=== PATIENT | male | born 1980 | race Caucasian/White ===

== ENCOUNTER → 2019-06-18 09:53 | Outpatient (CLI) | payer MEDICAID, SELFPAY ==
--- NOTE | 2019-06-18 10:26 | MRI_ITS ---
STUDY: MRI BRAIN WITH AND WITHOUT CONTRAST REASON FOR EXAM: Male, 38 years old. The patient presents with a history of right-sided hearing loss with dizziness x4 years. TECHNIQUE: Standardized multiplanar fat and water weighted pulse sequences were obtained. IV Dotarem 15 was administered for the contrast portion of the examination. Post contrast thin section T1 images were obtained in the axial and coronal planes of the posterior fossa and internal auditory canals. COMPARISON: None. FINDINGS: Normal size of the ventricles and extra-axial spaces for the patient's age. Normal white matter tracts of the supratentorial brain. There is no evidence for recent intracranial ischemia or other cause of cytotoxic edema on diffusion weighted imaging (DWI). Normal bilateral basal ganglia. Normal thalami. There is no extra-axial fluid accumulation. Normal flow voids within the major intracranial circulation suggesting patency by spin echo criteria. Normal venous enhancement. There is no enhancing intra-axial or extra-axial abnormality. Normal sella turcica, pituitary gland, infundibular stalk, optic chiasm and hypothalamus. Normal tectal plate and pineal gland. Normal midbrain, devon and medulla. Normal cerebellum. Normal basal cisterns. Normal bilateral temporal bones. Normal bilateral internal auditory canals. There is no enhancement of the bilateral 7th and 8th nerve complexes. There is no demonstrated vestibular schwannoma (acustic neuroma). No demonstrated orbital abnormality, within the constraints of a routine brain study. There are retention cyst of the right maxillary sinus. Normal calvarium and skull base. Normal visualized soft tissue structures. Normal visualized upper cervical spine. MRI/Brain W/WO Contrast IMPRESSION: 1. Normal unenhanced and enhanced MRI of the brain. 2. No acoustic neuroma. Electronically Signed: Irineo Flor DO at 13:44 EDT Tel , Service support ,
== END ==
PROVIDERS: Family Provider Family Medicine; PCP Family Medicine; Referring Provider Otolaryngology; Visit Provider Otolaryngology
DX: H91.90 Unspecified hearing loss, unspecified ear (principal)
CPT/HCPCS: 70553; A9575